=== PATIENT | female | born 1970 | race Two or more races ===

== ENCOUNTER 2017-07-22 13:58 | Inpatient (IN) | payer OTHER ==
[2017-07-22 14:54] VITALS: BMI 28.5
--- NOTE | 2017-07-22 16:14 | HP ---
Admission [facility] Chief Complaint: REHAB TX FOR COCAINE DEPENDENCE Allergies/Adverse Reactions: Allergies Allergy/AdvReac Type Severity Reaction Status Date / Time No Known Allergies Allergy Verified 12/02/13 14:07 History of Present Illness: 47 Y/O H/F WITH A HX OF COCAINE DEPENDENCE SEEKING TX. PT ON MMTP AND STATES WAS REFFERED TO REHAB BY "MY PROGRAM". Exam Limitations: No Limitations - Ebola screening Have you traveled outside of the country in the last 21 days: No Have you had contact with anyone from an Ebola affected area: No Have you been sick,other than usual withdrawal symptoms: No Do you have a fever: No - Review of Systems Constitutional: Chills, Night Sweats, Changes in sleep EENT: reports: Blurred Vision (WEARS READING GLASSES), Tearing, Nose Congestion , Dental Problems (UPPER AND LOWER DENTURES) Respiratory: reports: Shortness of Breath (ASTHMA HX), Wheezing Cardiac: reports: Lightheadedness GI: reports: Constipated (OIC), Diarrhea, Nausea, Vomiting, Indigestion, Abdominal cramping : reports: Dysuria Musculoskeletal: reports: Back Pain, Joint Pain, Muscle Pain Integumentary: reports: No Symptoms Reported Neuro: reports: Dizziness Endocrine: reports: No Symptoms Reported Hematology: reports: No Symptoms Reported Psychiatric: reports: Orientated x3, Anxious, Depressed Other Systems: Reviewed and Negative Patient History - Patient Medical History Hx Anemia: No Hx Asthma: Yes (MDI) Hx Chronic Obstructive Pulmonary Disease (COPD): No Hx Cancer: No Hx Cardiac Disorders: No Hx Congestive Heart Failure: No Hx Hypertension: No Hx Hypercholesterolemia: No Hx Pacemaker: No HX Cerebrovascular Accident: No Hx Seizures: No Hx Diabetes: Yes (OMN METFORMIN) Hx Gastrointestinal Disorders: No Hx Liver Disease: No Hx Genitourinary Disorders: No Hx Sexually Transmitted Disorders: No (DENIES) Hx Renal Disease (ESRD): No Hx Thyroid Disease: Yes (HYPERTHYROIDISM--NOT IN TREATMENT) Hx Human Immunodeficiency Virus (HIV): No (NEGATIVE HX) Hx Hepatitis C: Yes (TREATED WITH INTERFERON) Hx Depression: Yes (NO CURRENT MED) Hx Suicide Attempt: Yes (SELF CUTTING 2011;DENIES CURRENT S/I) Hx Bipolar Disorder: Yes Hx Schizophrenia: Yes - Patient Surgical History Past Surgical History: No Hx Neurologic Surgery: No Hx Cataract Extraction: No Hx Cardiac Surgery: No Hx Lung Surgery: No Hx Breast Surgery: No Hx Breast Biopsy: No Hx Abdominal Surgery: No Hx Appendectomy: No Hx Cholecystectomy: No Hx Genitourinary Surgery: No Hx Section: No Hx Orthopedic Surgery: No Anesthesia Reaction: No - PPD History Previous Implant?: Yes Documented Results: Negative w/proof Implanted On Prior [facility] Admission?: No Date: 05/04/15 PPD to be Administered?: Yes - Reproductive History Patient is a Female of Child Bearing Age (11 -55 yrs old): Yes Last Menstrual Period: 05/07/12 (swuddenly stopped 3 years ago ) Patient : No - Smoking Cessation Smoking history: Current every day smoker Have you smoked in the past 12 months: Yes Aproximately how many cigarettes per day: 20 Hx Chewing Tobacco Use: No Initiated information on smoking cessation: Yes 'Breaking Loose' booklet given: 07/22/17 - Substance & Tx. History Hx Alcohol Use: No (DENIES) Hx Substance Use: Yes (COCAINE) Substance Use Type: Cocaine Hx Substance Use Treatment: Yes (CURRENT[facility] - Substances Abused Cocaine Route: Smoking Frequency: Daily Amount used: $100 Age of first use: 28 Date of Last Use: 07/21/17 Family Disease History - Family Disease History Family Disease History: Diabetes: Grandparent (GM AND AUNT), Other: Father (AIDS /DRUG ADDICTION-), Mother (DRUG ADDICTION--REMISSION) Admission Physical Exam [facility] - Vital Signs Vital Signs: Vital Signs - 24 hr 07/22/17 14:51 Temperature 97.7 F Pulse Rate 58 L Respiratory 20 Rate Blood Pressure 122/45 - Physical General Appearance: Yes: No Apparent Distress, Anxious HEENTM: Yes: EOMI, Normocephalic, MALCOLM, Pharynx Normal Respiratory: Yes: Chest Non-Tender, Lungs Clear, Normal Breath Sounds, No Respiratory Distress Neck: Yes: No masses,lesions,Nodules, Supple, Trachea in good position Breast: Yes: Within Normal Limits Cardiology: Yes: Regular Rhythm, Regular Rate, S1, S2 Abdominal: Yes: Non Tender, Soft Genitourinary: Yes: Other (N/C) Back: Yes: Within Normal Limits Musculoskeletal: Yes: full range of Motion, Gait Steady Extremities: Yes: Normal Range of Motion, Non-Tender Neurological: Yes: manager copy II-XII NML intact, Fully Oriented, Alert Integumentary: Yes: Dry, Warm Lymphatic: Yes: Within Normal Limits - Diagnostic (1) Asthma Current Visit: Yes Status: Chronic Qualifiers: Asthma severity: mild Asthma complication type: uncomplicated (2) Diabetes mellitus Current Visit: Yes Status: Chronic Qualifiers: Diabetes mellitus type: type 2 (3) Nicotine dependence Current Visit: Yes Status: Chronic Qualifiers: Nicotine product type: cigarettes Substance use status: in withdrawal Qualified Code(s): F17.213 - Nicotine dependence, cigarettes, with withdrawal; F17.213 - Nicotine dependence, cigarettes, with withdrawal Cleared for Admission [facility] - Detox or Rehab Claeared for Rehab Admission: Yes [facility] Breath Alcohol Content Breath Alcohol Content: 0 Urine Pregancy Test - Result Urine Test Results: Negative- NO Line Present Urine Drug Screen - Results Drug Screen Negative: Yes Urine Drug Screen Results: THAIS-Cocaine, MTD-Methadone Inpatient Rehab Admission - Initial Determination Are CD services needed?: Yes Free of communicable disease: Yes Not in need of hospitalization: Yes - Rehab Admission Criteria Previous failed treatment: Yes Poor recovery environment: Yes Comorbidities: Yes Lacks judgement: Yes Patient is meeting Inpatient Rehab admission criteria:: Yes
[2017-07-22] MEDS ORDERED: P-EPHED 60MG/TRIPROLIDI 2.5MG TABLET PO PRN (16:44)
[2017-07-22] MEDS ORDERED: ACETAMINOPHEN 325 MG TABLET (FP) PO PRN (16:44)
[2017-07-22] MEDS ORDERED: MAGNESIUM CITRATE 300 ML BOTTLE PO PRN (16:44)
[2017-07-22] MEDS ORDERED: NICOTINE POLACRILEX 4 MG GUM BUC PRN (16:44)
[2017-07-22] MEDS ORDERED: MAG HYDROX/AL HYDROX/SIMETH 30 ML UNIT-DOSE CUP PO PRN (16:44)
[2017-07-22] MEDS ORDERED: MAGNESIUM HYDROX 2400MG/30ML ORAL SUSPENSION 30 ML CUP PO PRN (16:44)
[2017-07-22] MEDS ORDERED: guaiFENesin/D-METHORPHAN HB 10 ML UNIT-DOSE CUPS PO PRN (16:44)
[2017-07-22] MEDS ORDERED: LOPERAMIDE HCL 2 MG CAPSULE PO PRN (16:44)
[2017-07-22] MEDS ORDERED: hydrOXYzine PAMOATE 50 MG CAPSULE (FP) PO PRN (16:44)
[2017-07-22] MEDS ORDERED: IBUPROFEN 400 MG TABLET (FP) PO PRN (16:44)
[2017-07-22] MEDS ORDERED: MENTHOL/PHENOL 1 EACH UD MM PRN (16:44)
[2017-07-22] MEDS ORDERED: TUBERCULIN PPD 5 TU/0.1ML VIAL ID ONE ×2 (21:00→23:57)
[2017-07-22] MEDS: THIAMINE HCL 100 MG TABLET (FP) PO SCH (21:17)
[2017-07-22] MEDS: BUDESONIDE/FORMETEROL FUMARATE 80/4.5 mcg INHALER IH SCH (21:18)
[2017-07-22 22:13] LABS: URINE APPEARANCE CLEAR; URINE BILIRUBIN NEGATIVE (NEGATIVE); URINE BLOOD NEGATIVE (NEGATIVE); URINE COLOR STRAW; URINE GLUCOSE (UA) 3+ (NEGATIVE); URINE KETONE NEGATIVE (NEGATIVE); URINE LEUK ESTERASE NEGATIVE (NEGATIVE); URINE NITRITE NEGATIVE (NEGATIVE); URINE PROTEIN NEGATIVE (NEGATIVE); URINE UROBILINOGEN NEGATIVE mg/dL (0.2-1.0)
[2017-07-22] MEDS: NICOTINE 21 MG/24 HOURS TOPICAL PATCH TD SCH (22:33)
[2017-07-22] MEDS ORDERED: PT OWN MED DRAWER 7, Y5N ONE (23:47)
[2017-07-23] MEDS: metFORMIN HCL 500 MG TABLET (FP) PO SCH (06:39)
[2017-07-23] MEDS: INSULIN SLIDING SCALE (NOVOLOG) 1 VIAL SQ SCH ×2 (06:40→16:49)
[2017-07-23] MEDS ORDERED: INSULIN (NOVOLOG) ASPART 100 UNITS/ML 10ML VIAL ONE ×2 (06:41→16:49)
[2017-07-23] MEDS ORDERED: METHADONE HCL 40 MG DISPERSABLE TABLET PO SCH (08:45)
[2017-07-23] MEDS ORDERED: PT OWN MED DRAWER 7, Y5N ONE ×3 (08:56→22:38)
[2017-07-23] MEDS ORDERED: METHADONE HCL 10 MG TABLET ONE (09:02)
[2017-07-23] MEDS ORDERED: METHADONE HCL 40 MG DISPERSABLE TABLET ONE (09:02)
[2017-07-23] MEDS: METHADONE 80 MG, METHADONE 20 MG PO SCH (09:15)
[2017-07-23] MEDS: NICOTINE 21 MG/24 HOURS TOPICAL PATCH TD SCH (09:16)
[2017-07-23] MEDS: PRENATAL VITAMINS W/ FOLIC ACID TABLET (FP) PO SCH (09:16)
[2017-07-23] MEDS: BUDESONIDE/FORMETEROL FUMARATE 80/4.5 mcg INHALER IH SCH ×2 (09:17→21:57)
--- NOTE | 2017-07-23 09:57 | EKG ---
Test Reason : Blood Pressure : / mmHG Vent. Rate : 064 BPM Atrial Rate : 064 BPM P-R Int : 126 ms QRS Dur : 084 ms QT Int : 442 ms P-R-T Axes : 055 063 043 degrees QTc Int : 455 ms NORMAL SINUS RHYTHM NORMAL ECG NO PREVIOUS ECGS AVAILABLE Confirmed by MARTITA ALICIA MD ([id number]) on 07/23/2017 9:56:54 AM Referred By: Sharon White Confirmed By:MARTITA ALICIA MD
[2017-07-23 15:37] LABS: MCH 31.1 pg (25.7-33.7); MCHC 34.2 g/dl (32.0-36.0); MEAN CELL VOLUME 90.7 fl (80-96); MEAN PLT VOLUME 10.1 fl (7.5-11.1); PLATELET COUNT 182 K/MM3 (134-434); WHITE BLOOD COUNT 7.8 K/mm3 (4.0-10.0)
[2017-07-23 16:02] LABS: ALBUMIN 3.3 g/dl (3.4-5.0); ANION GAP 8 (8-16); BILIRUBIN,TOTAL 0.4 mg/dL (0.2-1.0); CALCIUM 9.1 mg/dL (8.5-10.1); CO2 29 mmol/L (21-32); CREATININE 0.9 mg/dL (0.55-1.02); GLUCOSE,RANDOM 282 mg/dL (74-106); SGOT/AST 19 U/L (15-37); SGPT/ALT 43 U/L (12-78); TOT PROT 6.8 g/dl (6.4-8.2)
[2017-07-23 16:03] LABS: ALK PHOS 142 U/L (45-117)
[2017-07-23] MEDS: THIAMINE HCL 100 MG TABLET (FP) PO SCH (21:57)
[2017-07-23] MEDS: diphenhydrAMINE HCL 50 MG CAPSULE PO PRN (21:57)
[2017-07-24] MEDS: diphenhydrAMINE HCL 50 MG CAPSULE PO PRN (00:21)
[2017-07-24] MEDS ORDERED: METHADONE HCL 40 MG DISPERSABLE TABLET ONE (03:33)
[2017-07-24] MEDS ORDERED: METHADONE HCL 10 MG TABLET ONE (03:33)
[2017-07-24] MEDS: METHADONE 80 MG, METHADONE 20 MG PO SCH (06:51)
[2017-07-24] MEDS: metFORMIN HCL 500 MG TABLET (FP) PO SCH ×2 (06:51→17:09)
[2017-07-24] MEDS ORDERED: INSULIN (NOVOLOG) ASPART 100 UNITS/ML 10ML VIAL ONE ×2 (06:53→17:09)
[2017-07-24] MEDS: INSULIN SLIDING SCALE (NOVOLOG) 1 VIAL SQ SCH ×2 (06:53→17:09)
[2017-07-24] MEDS ORDERED: PT OWN MED DRAWER 7, Y5N ONE ×4 (09:19→19:55)
[2017-07-24] MEDS: NICOTINE 21 MG/24 HOURS TOPICAL PATCH TD SCH (10:55)
[2017-07-24] MEDS: BUDESONIDE/FORMETEROL FUMARATE 80/4.5 mcg INHALER IH SCH ×2 (10:56→21:57)
[2017-07-24] MEDS: SERTRALINE HCL 50 MG TABLET (FP) PO SCH (10:56)
[2017-07-24] MEDS: PRENATAL VITAMINS W/ FOLIC ACID TABLET (FP) PO SCH (10:56)
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
[2017-07-24] MEDS: THIAMINE HCL 100 MG TABLET (FP) PO SCH (21:55)
[2017-07-24] MEDS: OLANZapine 5 MG TABLET PO SCH (21:55)
[2017-07-24] MEDS: traZODone HCL 100 MG TABLET (FP) PO SCH (21:55)
[2017-07-24] MEDS: RANITIDINE HCL 150 MG TABLET (FP) PO SCH (21:56)
[2017-07-24] MEDS ORDERED: traZODone HCL 100 MG TABLET (FP) PO SCH (22:00)
[2017-07-24] MEDS ORDERED: OLANZapine 5 MG TABLET PO SCH (22:00)
[2017-07-25] MEDS ORDERED: METHADONE HCL 10 MG TABLET ONE (03:19)
[2017-07-25] MEDS ORDERED: METHADONE HCL 40 MG DISPERSABLE TABLET ONE (03:19)
[2017-07-25] MEDS: INSULIN SLIDING SCALE (NOVOLOG) 1 VIAL SQ SCH ×2 (06:55→17:08)
[2017-07-25] MEDS: metFORMIN HCL 500 MG TABLET (FP) PO SCH ×2 (06:55→17:07)
[2017-07-25] MEDS: METHADONE 80 MG, METHADONE 20 MG PO SCH ×2 (07:44→10:33)
[2017-07-25] MEDS ORDERED: METHADONE HCL 10 MG TABLET PO SCH (10:00)
[2017-07-25] MEDS: PRENATAL VITAMINS W/ FOLIC ACID TABLET (FP) PO SCH (10:31)
[2017-07-25] MEDS: SERTRALINE HCL 50 MG TABLET (FP) PO SCH (10:31)
[2017-07-25] MEDS: RANITIDINE HCL 150 MG TABLET (FP) PO SCH ×2 (10:31→21:35)
[2017-07-25] MEDS: NICOTINE 21 MG/24 HOURS TOPICAL PATCH TD SCH (10:32)
[2017-07-25] MEDS: BUDESONIDE/FORMETEROL FUMARATE 80/4.5 mcg INHALER IH SCH ×2 (10:32→21:37)
[2017-07-25] MEDS ORDERED: PT OWN MED DRAWER 7, Y5N ONE ×5 (12:30→15:23)
[2017-07-25] MEDS ORDERED: INSULIN (NOVOLOG) ASPART 100 UNITS/ML 10ML VIAL ONE (16:47)
[2017-07-25] MEDS: traZODone HCL 100 MG TABLET (FP) PO SCH (21:35)
[2017-07-25] MEDS: THIAMINE HCL 100 MG TABLET (FP) PO SCH (21:35)
[2017-07-25] MEDS: OLANZapine 5 MG TABLET PO SCH (21:36)
[2017-07-26] MEDS: metFORMIN HCL 500 MG TABLET (FP) PO SCH ×2 (06:53→17:17)
[2017-07-26] MEDS: INSULIN SLIDING SCALE (NOVOLOG) 1 VIAL SQ SCH ×2 (07:36→17:18)
[2017-07-26] MEDS ORDERED: METHADONE HCL 10 MG TABLET ONE (09:29)
[2017-07-26] MEDS ORDERED: METHADONE HCL 40 MG DISPERSABLE TABLET ONE (09:29)
[2017-07-26] MEDS: METHADONE 80 MG, METHADONE 20 MG PO SCH (10:53)
[2017-07-26] MEDS: SERTRALINE HCL 50 MG TABLET (FP) PO SCH (10:54)
[2017-07-26] MEDS: PRENATAL VITAMINS W/ FOLIC ACID TABLET (FP) PO SCH (10:54)
[2017-07-26] MEDS: RANITIDINE HCL 150 MG TABLET (FP) PO SCH ×2 (10:54→21:50)
[2017-07-26] MEDS: NICOTINE 21 MG/24 HOURS TOPICAL PATCH TD SCH (10:55)
[2017-07-26] MEDS: BUDESONIDE/FORMETEROL FUMARATE 80/4.5 mcg INHALER IH SCH ×2 (10:55→21:51)
[2017-07-26] MEDS ORDERED: INSULIN (NOVOLOG) ASPART 100 UNITS/ML 10ML VIAL ONE ×2 (16:51→23:32)
[2017-07-26] MEDS: OLANZapine 5 MG TABLET PO SCH (21:51)
[2017-07-26] MEDS: traZODone HCL 100 MG TABLET (FP) PO SCH (21:51)
[2017-07-26] MEDS: THIAMINE HCL 100 MG TABLET (FP) PO SCH (21:51)
[2017-07-27] MEDS: metFORMIN HCL 500 MG TABLET (FP) PO SCH ×2 (06:48→16:44)
[2017-07-27] MEDS: INSULIN SLIDING SCALE (NOVOLOG) 1 VIAL SQ SCH ×2 (06:48→16:44)
[2017-07-27] MEDS ORDERED: INSULIN (NOVOLOG) ASPART 100 UNITS/ML 10ML VIAL ONE ×2 (06:58→16:43)
[2017-07-27] MEDS ORDERED: METHADONE HCL 10 MG TABLET ONE (08:38)
[2017-07-27] MEDS ORDERED: METHADONE HCL 40 MG DISPERSABLE TABLET ONE (08:38)
[2017-07-27] MEDS: NICOTINE 21 MG/24 HOURS TOPICAL PATCH TD SCH (10:17)
[2017-07-27] MEDS: METHADONE 80 MG, METHADONE 20 MG PO SCH (10:17)
[2017-07-27] MEDS: PRENATAL VITAMINS W/ FOLIC ACID TABLET (FP) PO SCH (10:18)
[2017-07-27] MEDS: BUDESONIDE/FORMETEROL FUMARATE 80/4.5 mcg INHALER IH SCH ×2 (10:19→21:58)
[2017-07-27] MEDS: RANITIDINE HCL 150 MG TABLET (FP) PO SCH ×2 (10:19→21:58)
[2017-07-27] MEDS: SERTRALINE HCL 50 MG TABLET (FP) PO SCH (10:19)
[2017-07-27] MEDS ORDERED: PT OWN MED DRAWER 7, Y5N ONE ×3 (10:26→15:06)
[2017-07-27] MEDS: OLANZapine 5 MG TABLET PO SCH (21:57)
[2017-07-27] MEDS: THIAMINE HCL 100 MG TABLET (FP) PO SCH (21:58)
[2017-07-27] MEDS: traZODone HCL 100 MG TABLET (FP) PO SCH (21:58)
[2017-07-28] MEDS: metFORMIN HCL 500 MG TABLET (FP) PO SCH ×2 (06:53→16:40)
[2017-07-28] MEDS: INSULIN SLIDING SCALE (NOVOLOG) 1 VIAL SQ SCH ×2 (06:53→16:40)
[2017-07-28] MEDS ORDERED: INSULIN (NOVOLOG) ASPART 100 UNITS/ML 10ML VIAL ONE ×2 (07:06→16:50)
[2017-07-28] MEDS ORDERED: METHADONE HCL 10 MG TABLET ONE (08:35)
[2017-07-28] MEDS ORDERED: METHADONE HCL 40 MG DISPERSABLE TABLET ONE (08:35)
[2017-07-28] MEDS: METHADONE 80 MG, METHADONE 20 MG PO SCH (10:34)
[2017-07-28] MEDS: NICOTINE 21 MG/24 HOURS TOPICAL PATCH TD SCH (10:35)
[2017-07-28] MEDS: SERTRALINE HCL 50 MG TABLET (FP) PO SCH (10:35)
[2017-07-28] MEDS: PRENATAL VITAMINS W/ FOLIC ACID TABLET (FP) PO SCH (10:36)
[2017-07-28] MEDS: RANITIDINE HCL 150 MG TABLET (FP) PO SCH ×2 (10:36→21:45)
[2017-07-28] MEDS: BUDESONIDE/FORMETEROL FUMARATE 80/4.5 mcg INHALER IH SCH ×2 (10:36→21:45)
[2017-07-28] MEDS ORDERED: PT OWN MED DRAWER 7, Y5N ONE ×2 (10:40→22:08)
[2017-07-28] MEDS: traZODone HCL 100 MG TABLET (FP) PO SCH (21:45)
[2017-07-28] MEDS: THIAMINE HCL 100 MG TABLET (FP) PO SCH (21:46)
[2017-07-28] MEDS: OLANZapine 5 MG TABLET PO SCH (21:46)
[2017-07-29] MEDS: diphenhydrAMINE HCL 50 MG CAPSULE PO PRN (00:30)
[2017-07-29] MEDS: metFORMIN HCL 500 MG TABLET (FP) PO SCH ×2 (06:58→17:08)
[2017-07-29] MEDS: INSULIN SLIDING SCALE (NOVOLOG) 1 VIAL SQ SCH ×2 (06:58→17:09)
[2017-07-29] MEDS ORDERED: INSULIN (NOVOLOG) ASPART 100 UNITS/ML 10ML VIAL ONE ×3 (07:09→22:26)
[2017-07-29] MEDS ORDERED: METHADONE HCL 40 MG DISPERSABLE TABLET ONE (09:05)
[2017-07-29] MEDS ORDERED: METHADONE HCL 10 MG TABLET ONE (09:05)
[2017-07-29] MEDS ORDERED: PT OWN MED DRAWER 7, Y5N ONE ×2 (09:07→11:09)
[2017-07-29] MEDS: SERTRALINE HCL 50 MG TABLET (FP) PO SCH (11:00)
[2017-07-29] MEDS: PRENATAL VITAMINS W/ FOLIC ACID TABLET (FP) PO SCH (11:02)
[2017-07-29] MEDS: RANITIDINE HCL 150 MG TABLET (FP) PO SCH ×2 (11:03→21:50)
[2017-07-29] MEDS: NICOTINE 21 MG/24 HOURS TOPICAL PATCH TD SCH (11:03)
[2017-07-29] MEDS: BUDESONIDE/FORMETEROL FUMARATE 80/4.5 mcg INHALER IH SCH ×2 (11:03→21:50)
[2017-07-29] MEDS: METHADONE 80 MG, METHADONE 20 MG PO SCH (11:04)
[2017-07-29] MEDS: THIAMINE HCL 100 MG TABLET (FP) PO SCH (21:49)
[2017-07-29] MEDS: traZODone HCL 100 MG TABLET (FP) PO SCH (21:50)
[2017-07-29] MEDS: OLANZapine 5 MG TABLET PO SCH (21:50)
[2017-07-30] MEDS: INSULIN SLIDING SCALE (NOVOLOG) 1 VIAL SQ SCH ×2 (06:38→17:18)
[2017-07-30] MEDS: metFORMIN HCL 500 MG TABLET (FP) PO SCH ×2 (06:39→17:17)
[2017-07-30] MEDS ORDERED: INSULIN (NOVOLOG) ASPART 100 UNITS/ML 10ML VIAL ONE ×3 (06:44→23:15)
[2017-07-30] MEDS ORDERED: METHADONE HCL 40 MG DISPERSABLE TABLET ONE (08:52)
[2017-07-30] MEDS ORDERED: METHADONE HCL 10 MG TABLET ONE (08:52)
[2017-07-30] MEDS: RANITIDINE HCL 150 MG TABLET (FP) PO SCH ×2 (10:55→21:42)
[2017-07-30] MEDS: PRENATAL VITAMINS W/ FOLIC ACID TABLET (FP) PO SCH (10:55)
[2017-07-30] MEDS: BUDESONIDE/FORMETEROL FUMARATE 80/4.5 mcg INHALER IH SCH ×2 (10:55→21:43)
[2017-07-30] MEDS: SERTRALINE HCL 50 MG TABLET (FP) PO SCH (10:55)
[2017-07-30] MEDS: NICOTINE 21 MG/24 HOURS TOPICAL PATCH TD SCH (10:55)
[2017-07-30] MEDS: METHADONE 80 MG, METHADONE 20 MG PO SCH (10:55)
[2017-07-30] MEDS ORDERED: METHADONE HCL 40 MG DISPERSABLE TABLET PO SCH (11:46)
[2017-07-30] MEDS: THIAMINE HCL 100 MG TABLET (FP) PO SCH (21:42)
[2017-07-30] MEDS: OLANZapine 5 MG TABLET PO SCH (21:42)
[2017-07-30] MEDS: traZODone HCL 100 MG TABLET (FP) PO SCH (21:42)
[2017-07-31] MEDS: INSULIN SLIDING SCALE (NOVOLOG) 1 VIAL SQ SCH ×4 (06:35→21:56)
[2017-07-31] MEDS: metFORMIN HCL 500 MG TABLET (FP) PO SCH ×2 (06:36→17:02)
[2017-07-31] MEDS ORDERED: INSULIN (NOVOLOG) ASPART 100 UNITS/ML 10ML VIAL ONE ×4 (06:40→23:11)
--- NOTE | 2017-07-31 07:53 | PN ---
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
[2017-07-31] MEDS ORDERED: METHADONE HCL 10 MG TABLET ONE (09:18)
[2017-07-31] MEDS ORDERED: METHADONE HCL 40 MG DISPERSABLE TABLET ONE (09:19)
[2017-07-31] MEDS: METHADONE 80 MG, METHADONE 10 MG PO SCH (10:52)
[2017-07-31] MEDS: NICOTINE 21 MG/24 HOURS TOPICAL PATCH TD SCH (10:53)
[2017-07-31] MEDS: SERTRALINE HCL 50 MG TABLET (FP) PO SCH (10:53)
[2017-07-31] MEDS: BUDESONIDE/FORMETEROL FUMARATE 80/4.5 mcg INHALER IH SCH ×2 (10:54→21:56)
[2017-07-31] MEDS: PRENATAL VITAMINS W/ FOLIC ACID TABLET (FP) PO SCH (10:54)
[2017-07-31] MEDS: RANITIDINE HCL 150 MG TABLET (FP) PO SCH ×2 (10:54→21:55)
[2017-07-31] MEDS ORDERED: PT OWN MED DRAWER 7, Y5N ONE (11:03)
[2017-07-31] MEDS: THIAMINE HCL 100 MG TABLET (FP) PO SCH (21:54)
[2017-07-31] MEDS: traZODone HCL 100 MG TABLET (FP) PO SCH (21:55)
[2017-07-31] MEDS: OLANZapine 5 MG TABLET PO SCH (21:55)
[2017-08-01] MEDS: metFORMIN HCL 500 MG TABLET (FP) PO SCH ×2 (06:47→17:15)
[2017-08-01] MEDS: INSULIN SLIDING SCALE (NOVOLOG) 1 VIAL SQ SCH ×4 (06:48→21:56)
[2017-08-01] MEDS ORDERED: INSULIN (NOVOLOG) ASPART 100 UNITS/ML 10ML VIAL ONE ×4 (06:54→23:20)
[2017-08-01] MEDS ORDERED: METHADONE HCL 10 MG TABLET ONE (09:07)
[2017-08-01] MEDS ORDERED: METHADONE HCL 40 MG DISPERSABLE TABLET ONE (09:07)
[2017-08-01] MEDS ORDERED: PT OWN MED DRAWER 7, Y5N ONE ×3 (09:08→15:27)
[2017-08-01] MEDS: RANITIDINE HCL 150 MG TABLET (FP) PO SCH ×2 (10:38→21:54)
[2017-08-01] MEDS: BUDESONIDE/FORMETEROL FUMARATE 80/4.5 mcg INHALER IH SCH ×2 (10:38→21:56)
[2017-08-01] MEDS: SERTRALINE HCL 50 MG TABLET (FP) PO SCH (10:38)
[2017-08-01] MEDS: METHADONE 80 MG, METHADONE 10 MG PO SCH (10:38)
[2017-08-01] MEDS: PRENATAL VITAMINS W/ FOLIC ACID TABLET (FP) PO SCH (10:38)
[2017-08-01] MEDS: NICOTINE 21 MG/24 HOURS TOPICAL PATCH TD SCH (10:39)
[2017-08-01] MEDS: THIAMINE HCL 100 MG TABLET (FP) PO SCH (21:54)
[2017-08-01] MEDS: OLANZapine 5 MG TABLET PO SCH (21:54)
[2017-08-01] MEDS: traZODone HCL 100 MG TABLET (FP) PO SCH (21:57)
[2017-08-01] MEDS ORDERED: TUBERCULIN PPD 5 TU/0.1ML VIAL ID ONE (23:20)
[2017-08-02] MEDS: metFORMIN HCL 500 MG TABLET (FP) PO SCH ×2 (06:35→16:37)
[2017-08-02] MEDS: INSULIN SLIDING SCALE (NOVOLOG) 1 VIAL SQ SCH ×2 (06:35→12:04)
[2017-08-02] MEDS ORDERED: INSULIN (NOVOLOG) ASPART 100 UNITS/ML 10ML VIAL ONE ×2 (06:52→12:04)
[2017-08-02 07:16] VITALS: BP 120/65; PULSE 80; TEMP 98
[2017-08-02] MEDS ORDERED: METHADONE HCL 10 MG TABLET ONE (09:24)
[2017-08-02] MEDS ORDERED: METHADONE HCL 40 MG DISPERSABLE TABLET ONE (09:25)
[2017-08-02] MEDS: METHADONE 80 MG, METHADONE 10 MG PO SCH (10:49)
[2017-08-02] MEDS: NICOTINE 21 MG/24 HOURS TOPICAL PATCH TD SCH (10:49)
[2017-08-02] MEDS: PRENATAL VITAMINS W/ FOLIC ACID TABLET (FP) PO SCH (10:50)
[2017-08-02] MEDS: BUDESONIDE/FORMETEROL FUMARATE 80/4.5 mcg INHALER IH SCH (10:50)
[2017-08-02] MEDS: RANITIDINE HCL 150 MG TABLET (FP) PO SCH (10:50)
[2017-08-02] MEDS: SERTRALINE HCL 50 MG TABLET (FP) PO SCH (10:50)
--- NOTE | 2017-08-02 16:31 | PN ---
Psychiatric Progress Note Vital Signs: Vital Signs Period Temp Pulse Resp BP Sys/Muir Pulse Ox Last 24 Hr 98.0 F 76-80 16-18 120-129/65-79 Date of Session: 08/02/17 Chief Complaint:: Discharge visit HPI: Patient addressed Cocaine dependence comorbid with Schizoaffective disorder. ROS: Significant for DM,HTN. Current Medications: Active Medications Generic Name Dose Route Start Last Admin Trade Name Freq PRN Reason Stop Dose Admin Acetaminophen 650 mg 07/22/17 16:44 Tylenol - PO Q4H PRN PAIN Al Hydroxide/Mg Hydroxide 30 ml 07/22/17 16:44 07/24/17 10:58 Mylanta Oral Suspension - PO 30 ml Q6H PRN Administration DYSPEPSIA Budesonide/Formoterol Fumarate 2 puff 07/22/17 22:00 08/02/17 10:50 Symbicort 80/4.5mcg - IH 2 puff BID AJITH Administration Diphenhydramine HCl 50 mg 07/22/17 22:00 07/29/17 00:30 Benadryl - PO 50 mg HSMR1 PRN Administration INSOMNIA Eucalyptus/Menthol/Phenol/Sorbitol 1 each 07/22/17 16:44 Cepastat Lozenge - MM Q4H PRN SORE THROAT Guaifenesin 10 ml 07/22/17 16:44 Robitussin Dm - PO Q6H PRN COUGH Hydroxyzine Pamoate 50 mg 07/22/17 16:44 Vistaril - PO Q4H PRN AGITATION Insulin Aspart 0 vial 07/31/17 11:00 08/02/17 12:04 Novolog Vial Sliding Scale - SQ 4 units ACHS AJITH Administration Protocol Loperamide HCl 4 mg 07/22/17 16:44 Imodium - PO Q6H PRN DIARRHEA Magnesium Citrate 300 ml 07/22/17 16:44 Citroma - PO Q48H PRN CONSTIPATION Magnesium Hydroxide 30 ml 07/22/17 16:44 Milk Of Magnesia - PO DAILY PRN CONSTIPATION Metformin HCl 500 mg 07/24/17 16:30 08/02/17 06:35 Glucophage - PO 500 mg BID@0700,1630 AJITH Administration Methadone HCl 80 mg/ Methadone 90 mg 07/31/17 10:00 08/02/17 10:49 HCl 10 mg PO 08/06/17 09:59 90 mg DAILY@1000 AJITH Administration Nicotine 21 mg 07/22/17 16:45 08/02/17 10:49 Nicoderm Patch - TD 21 mg DAILY AJITH Administration Nicotine Polacrilex 4 mg 07/22/17 16:44 Nicorette Gum - BUC Q2H PRN NICOTINE REPLACEMENT RX Olanzapine 5 mg 07/23/17 22:34 08/01/17 21:54 Zyprexa - PO 5 mg HS AJITH Administration Multivit/Folic Acid/Iron 1 tab 07/23/17 10:00 08/02/17 10:50 Vitamins (Sjr) - PO 1 tab DAILY AJITH Administration Pseudoephedrine/Triprolidine 1 combo 07/22/17 16:44 Actifed - PO TID PRN NASAL CONGESTION Ranitidine HCl 150 mg 07/24/17 22:00 08/02/17 10:50 Zantac - PO 150 mg BID AJITH Administration Sertraline HCl 100 mg 07/24/17 10:00 08/02/17 10:50 Zoloft - PO 100 mg DAILY AJITH Administration Thiamine HCl 100 mg 07/22/17 22:00 08/01/17 21:54 Vitamin B1 - PO 100 mg HS AJITH Administration Trazodone HCl 100 mg 07/23/17 22:34 08/01/17 21:57 Desyrel - PO 100 mg HS AJITH Administration Current Side Effect: No Lab tests ordered: No Lab tests reviewed: Yes Provider note:: Patient completed 11 days (early discharge due to family reasons ).She has met some treatment goals and will continue to address her issues on outpatient basis at [facility].patient reports finding that Trazodone 100 mg po hs,Zoloft 100 mg po daily and Zyprexa 5 mg po hs help to cope with depressed mood and insomnia as well as with mood instability.scripts for 30 days supply provided. Supportive therapy provided focusing on relapse prevention. Patient is stable for discharge today.. Total face to face time:: 30 Mental Status Exam - Mental Status Exam Alert and Oriented to: Time, Place, Person Cognitive Function: Grossly Intact Patient Appearance: Well Groomed Mood: Euthymic Affect: Mood Congruent Patient Behavior: Cooperative Speech Pattern: Clear Voice Loudness: Normal Thought Process: Goal Oriented Thought Disorder: Being Controlled Hallucinations: Denies Suicidal Ideation: Denies Homicidal Ideation: Denies Insight/Judgement: Fair Sleep: Fair Appetite: Good Muscle strength/Tone: Normal Gait/Station: Normal Psychiatric Treatment Plan - Problem List (1) Nicotine dependence Current Visit: Yes Qualifiers: Nicotine product type: cigarettes Substance use status: in withdrawal Qualified Code(s): F17.213 - Nicotine dependence, cigarettes, with withdrawal; F17.213 - Nicotine dependence, cigarettes, with withdrawal (2) Schizoaffective disorder Current Visit: Yes (3) Asthma Current Visit: Yes Qualifiers: Asthma severity: mild Asthma complication type: uncomplicated (4) Diabetes mellitus Current Visit: Yes Qualifiers: Diabetes mellitus type: type 2 (5) Cocaine dependence Current Visit: Yes Qualifiers: Substance use status: uncomplicated Qualified Code(s): F14.20 - Cocaine dependence, uncomplicated; F14.20 - Cocaine dependence, uncomplicated; F14.20 - Cocaine dependence, uncomplicated
== END 2017-08-02 17:00 | disposition home or self-care (01) | DRG 772 ==
LOC: YASAS 13:58 → Y3E 18:38
PROVIDERS: ADMIT Psychiatry & Neurology Psychiatry; ATTEND Psychiatry & Neurology Psychiatry
PROC: HZ42ZZZ Group Counseling for Substance Abuse Treatment, Cognitive-Behavioral (ICD-10-PCS; principal; 2017-07-22)
DX: F14.20 Cocaine dependence, uncomplicated (principal); F11.20 Opioid dependence, uncomplicated; F17.213 Nicotine dependence, cigarettes, with withdrawal; F25.9 Schizoaffective disorder, unspecified; J45.20 Mild intermittent asthma, uncomplicated; E11.65 Type 2 diabetes mellitus with hyperglycemia; E05.90 Thyrotoxicosis, unspecified without thyrotoxic crisis or storm; Z79.4 Long term (current) use of insulin; Z79.84 Long term (current) use of oral hypoglycemic drugs; Z91.5 Personal history of self-harm
CPT/HCPCS: 36415; 80053; 81003; 83036; 85027; 86593; 93005; 93010